=== PATIENT | male | born 1965 | race Caucasian/White ===

== ENCOUNTER 2021-04-07 13:10 | Emergency (ER) | payer OTHER ==
[~2021-04-07] VITALS: Ht 177.8 cm; Wt 90.7 kg
[2021-04-07] MEDS ORDERED: NEURONTIN (13:23)
[2021-04-07] MEDS ORDERED: MORPHINE SULFATE 4 MG/1 ML DISP.SYRIN IV ONE (13:30)
[2021-04-07] MEDS ORDERED: MORPHINE SULFATE 4 MG/1 ML DISP.SYRIN ONE (13:38)
--- NOTE | 2021-04-07 13:44 | NUR ---
[employer] tech at bedside. States improvement in pain since medication administration.
[2021-04-07 13:56] LABS: *BILIRUBIN,URIN NEGATIVE (NEGATIVE); *BLOOD, URINE 2+ (NEGATIVE); *CLARITY,URINE CLOUDY (CLEAR); *COLOR,URINE YELLOW (YELLOW); *KETONES,URINE NEGATIVE (NEGATIVE); *UROBILINOGEN,URINE 0.2 E.U./dl (NORMAL); LEUKOCYTE ESTERASE ,URINE 1+ (NEGATIVE); NITRITE, URINE POSITIVE (NEGATIVE); PH,URINE 5.5 (5.0-8.0); UGLUCOSE NEGATIVE (NEGATIVE)
[2021-04-07] MEDS ORDERED: CEFTRIAXONE 1 G VIAL IM ONE (14:15)
[2021-04-07] MEDS ORDERED: LEVO500T90 PO (14:36)
[2021-04-07] MEDS ORDERED: IBUP-1955 PO (14:36)
[2021-04-07 14:38] LABS: WBC,URINE 50-80 /HPF (0-3)
[2021-04-07 14:39] LABS: BACTERIA,URINE MANY /HPF (NONE SEEN); SQUAMOUS EPITHELIAL CELL,UR FEW /HPF (NONE SEEN)
[2021-04-07] MEDS ORDERED: CEFTRIAXONE /D5W 50ML IVPB **ER PYXIS IV ONE (14:47)
[2021-04-07 15:01] VITALS: BP 131/86
[2021-04-09 21:06] LABS: *TRIC.VAG. NAA Negative (Negative)
[2021-04-09 22:06] LABS: *GC NAA Negative (Negative)
== END 2021-04-07 15:01 | disposition home or self-care (01) ==
LOC: ER 13:10
DX: N45.1 Epididymitis (principal); N50.811 Right testicular pain; N39.0 Urinary tract infection, site not specified; Z88.0 Allergy status to penicillin; Z79.1 Long term (current) use of non-steroidal anti-inflammatories (NSAID); Z79.2 Long term (current) use of antibiotics
CPT/HCPCS: 76870; 81001; 87077; 87086; 87186; 87491; 96361; 96374; 96375; 99284; J0696; J2270; A4663

== ENCOUNTER 2021-09-02 13:33 | Emergency (ER) | payer SELFPAY ==
[~2021-09-02 13:33] MED LIST: IBUP-1955 PO; LEVO500T90 PO; NEURONTIN
== END 2021-09-02 17:01 | disposition left against medical advice (07) ==
LOC: ER 13:33
DX: Z53.21 Procedure and treatment not carried out due to patient leaving prior to being seen by health care provider (principal)

== ENCOUNTER 2021-09-05 10:35 | Emergency (ER) | payer OTHER ==
[~2021-09-05] VITALS: Ht 180.3 cm; Wt 85.3 kg
[2021-09-05] MEDS ORDERED: IV NS 1000 ML 1,000 ML IV ONE ×2 (11:15)
[2021-09-05 12:17] VITALS: BP 135/88
--- NOTE | 2021-09-05 12:18 | NUR ---
BREN is here and will be booking the patient.
--- NOTE | 2021-09-05 12:21 | NUR ---
Patient discharged with police stable condition. Written and verbal after care instructions given. Patient verbalizes understanding of instructions. Stressed follow up or return to ER for worsening s/s. [employer] [id number] here accompanying patient.
== END 2021-09-05 12:22 | disposition home or self-care (01) ==
LOC: ER 10:35
DX: T65.891A Toxic effect of other specified substances, accidental (unintentional), initial encounter (principal); H57.13 Ocular pain, bilateral; Y92.89 Other specified places as the place of occurrence of the external cause; H40.9 Unspecified glaucoma; F41.9 Anxiety disorder, unspecified; F15.10 Other stimulant abuse, uncomplicated; Z88.0 Allergy status to penicillin
CPT/HCPCS: 99284; J7040 ×2; A4663